=== PATIENT | female | born 1940 | race Caucasian/White ===

== ENCOUNTER 2017-03-27 16:42 | Outpatient (CLI) | payer MEDICARE, MEDICAID ==
[2016-02-16 05:52] VITALS: BMI 29.1
[~2017-03-27 16:42] MED LIST: CALCIUM 500 + D1 TAB PO; DEMADEX20 MG PO; ESGIC TABLET1 TAB PO; HYDROCODON-ACE1 EAC7 PO; HYDROCODONE-APA1 TAB PO; KLOR-CON 1010 MEQ PO; MIRALAX17 GM PO; PLAVIX75 MG PO; PRILOSEC20 MG PO; STOOL SOFTENER100 M1 PO; SYNTHROID100 MCG PO; VITAMIN D31000 UNIT PO; ZANAFLEX4 MG PO; ZOCOR40 MG PO
== END 2017-03-27 17:34 ==
LOC: D.MAMMO 16:42
DX: Z12.31 Encounter for screening mammogram for malignant neoplasm of breast (principal)

== ENCOUNTER → 2018-07-22 07:01 | Outpatient (CLI) | payer MEDICARE, MEDICAID ==
[2016-02-16 05:52] VITALS: BMI 29.1
[2018-07-22 07:39] LABS: ALBUMIN 3.7 g/dL (3.4-5.0); BILIRUBIN - INDIRECT 0.17 mg/dL (0.00-1.00); BILIRUBIN - TOTAL 0.22 mg/dL (0.2-1.3); PROTEIN - SERUM 7.4 g/dL (6.4-8.2)
[2018-07-22 07:42] LABS: BILIRUBIN - DIRECT 0.05 mg/dL (0.00-0.30)
== END | disposition home or self-care (01) ==
LOC: D.US 07:01 → D.NM 08:30
PROVIDERS: Internal Medicine Gastroenterology
DX: R11.0 Nausea (principal); R10.9 Unspecified abdominal pain

== ENCOUNTER 2019-03-30 09:30 | Outpatient (CLI) | payer MEDICARE, MEDICAID ==
[2016-02-16 05:52] VITALS: BMI 29.1
== END 2019-03-30 10:00 | disposition home or self-care (01) ==
LOC: D.MAMMO 09:30
PROVIDERS: ATTEND Clinical Nurse Specialist Adult Health
DX: Z12.31 Encounter for screening mammogram for malignant neoplasm of breast (principal)

== ENCOUNTER 2020-04-24 10:30 | Outpatient (CLI) | payer MEDICARE, MEDICAID ==
[2016-02-16 05:52] VITALS: BMI 29.1
== END 2020-04-24 22:50 | disposition home or self-care (01) ==
LOC: D.MAMMO 10:30
PROVIDERS: ATTEND Clinical Nurse Specialist Adult Health
DX: Z12.31 Encounter for screening mammogram for malignant neoplasm of breast (principal)

== ENCOUNTER → 2020-05-17 17:00 | Outpatient (CLI) | payer MEDICARE, MEDICAID ==
[2016-02-16 05:52] VITALS: BMI 29.1
== END | disposition home or self-care (01) ==
LOC: D.MAMMO 09:00
PROVIDERS: ATTEND Clinical Nurse Specialist Adult Health
DX: R92.8 Other abnormal and inconclusive findings on diagnostic imaging of breast (principal)